=== PATIENT | male | born 1945 | race Caucasian/White ===

== ENCOUNTER → 2019-09-18 | Outpatient (CLI) | payer MEDICARE, BC ==
[~2019-09-18] MED LIST: ALBU.083IS INH; BUDE.25 NEB; BUDE200IP INH
[2019-09-19 14:51] LABS: Stool Occult Bld Immuno 1 Negative (NEGATIVE); Stool Occult Bld Immuno 2 Negative (NEGATIVE)
== END | disposition home or self-care (01) ==
LOC: LAB SHORT 07:10 → LAB 07:10 → LAB FUT 08-28 11:20
PROVIDERS: Internal Medicine Gastroenterology
DX: Z12.11 Encounter for screening for malignant neoplasm of colon (principal)
CPT/HCPCS: G0328

== ENCOUNTER → 2022-12-18 | Outpatient (CLI) | payer MEDICARE, BC | LOC: LAB 17:42 → LAB SHORT 17:42 | DX: N39.0 Urinary tract infection, site not specified (principal) | CPT/HCPCS: 87086 ==